=== PATIENT | female | born 1940 | race African-American/Black ===

== ENCOUNTER → 2018-03-20 | Day surgery (SDC) | payer MEDICARE ==
[2018-03-18 13:04] LABS: INR 1.09; PROTHROMBIN TIME 13.3 seconds (11.9-14.5)
[2018-03-18 13:05] LABS: PARTIAL THROMBOPLASTIN TIME 25.9 seconds (23.8-35.5)
[2018-03-18 13:12] LABS: BASOPHILS % 1.1 % (0.0-1.0); EOSINOPHILS % 0.5 % (0.0-6.0); HEMATOCRIT 36.8 % (34.2-44.1); HEMOGLOBIN 12.3 g/dL (12.0-16.0); LYMPHOCYTES # (AUTO) 1.6 (1.0-3.2); LYMPHOCYTES % 41.8 % (18.0-39.1); MEAN CORPUSCULAR HEMOGLOBIN 30.6 pg (28-32); MEAN CORPUSCULAR HGB CONC 33.4 g/dL (31-35); MEAN CORPUSCULAR VOLUME 91.5 fL (81-99); MONOCYTES # (AUTO) 0.3 (0.2-0.8); NEUTROPHILS # (AUTO) 1.8 (2.1-6.9); NEUTROPHILS % 48.6 % (38.7-80.0); PLATELET COUNT 211 x10e3/uL (140-360); RED BLOOD COUNT 4.02 x10e6/uL (3.6-5.1); RED CELL DISTRIBUTION WIDTH 12.2 % (11.7-14.4)
[2018-03-18 13:12] LABS: ALANINE AMINOTRANSFERASE 11 IU/L (0-55); ALBUMIN 3.8 g/dL (3.5-5.0); ALBUMIN/GLOBULIN RATIO 1.2 (0.8-2.0); ALKALINE PHOSPHATASE 56 IU/L (40-150); ANION GAP 12.8 mmol/L (8-16); BLOOD UREA NITROGEN 9 mg/dL (7-26); BUN/CREATININE RATIO 10 (6-25); CALCIUM 9.7 mg/dL (8.4-10.2); CARBON DIOXIDE 30 mmol/L (22-29); CHLORIDE 104 mmol/L (98-107); CREATININE, SERUM 0.86 mg/dL (0.57-1.11); EST GLOMERULAR FILTRATION RATE > 60 ML/MIN (60-); GLUCOSE 93 mg/dL (74-118); POTASSIUM 3.8 mmol/L (3.5-5.1); SODIUM 143 mmol/L (136-145)
--- NOTE | 2018-03-18 13:51 | Diagnostic Imaging Report ---
PROCEDURE: Frontal and lateral views of the chest. COMPARISON: None. INDICATIONS: PREOPERATIVE CHEST XRAY FOR BLADDER SURGERY FINDINGS: Lines/tubes: None. Lungs: Mild biapical scarring. The lungs are well inflated. There is no evidence of pneumonia or pulmonary edema. Pleura: There is no pleural effusion or pneumothorax. Heart and mediastinum: Aortic arch calcifications. The heart and the mediastinum are otherwise normal. Bones: No acute bony abnormality. IMPRESSION: No acute cardiopulmonary disease. Dictated by: Yuniel Ludwig M.D. on 03/18/2018 at 13:55 Electronically approved by: Yuniel Ludwig M.D. on 03/18/2018 at 13:55
[~2018-03-20] MED LIST: ALEVE220 M1; ASPER-FLEX85 GM; ASPERCREME177.4 ML; BOTULINUM TOXIN TYPE A 100 UNIT VIAL IM ONE; CEFOXITIN SOD 1 GM VIAL ONE; COPAXONE20 MG/KIT INJ; DEXAMETHASONE SOD PHOS INJ 4 MG/ML VIAL ONE; DOXYCYCLINE HY100 MG PO; EPHEDRINE SULFATE INJ 50 MG/10 ML SYR ONE; FENTANYL CITRATE/PF 100MCG/2 ML INJ ONE; HYDROCHLOROTHIA25 MG PO; LIDOCAINE HCL 2% LOCAL INJ 5 ML SDV VIAL INJ ONE; LOVASTATIN10 MG; MACROBID 100 M100 MG PO; MIDAZOLAM HCL 2 MG/2 ML VIAL ONE; MYRBETRIQ25 MG PO; NEOSPORIN MOIS170 GM; ONDANSETRON HCL INJ 2 MG/ML VIAL ONE; OXYBUTYNIN CHLOR5 MG PO; PROPOFOL IV EMULSION 10 MG/ML 20 ML VIAL ONE; SEVOFLURANE INHAL SOLN 250 ML PEN BTL ONE; SYSTANE BALANCE10 ML; TYLENOL EXTRA500 MG; VESICARE10 MG PO; [UNRECOGNIZED DRUG - OTHER] INJ ONE
--- NOTE | 2018-03-20 10:15 | Operative Report ---
DATE OF PROCEDURE: March 20, 2018 PREOPERATIVE DIAGNOSES 1. Urinary urgency incontinence. 2. Multiple sclerosis. POSTOPERATIVE DIAGNOSES 1. Urinary urgency incontinence. 2. Multiple sclerosis. OPERATIONS PERFORMED 1. Cystoscopy. 2. Injection of intravesical Botox, 100 units. ANESTHESIA: General. INDICATIONS: This patient is a 78-year-old black female with a long history of multiple sclerosis and urinary urgency incontinence. She has failed on anticholinergics and Myrbetriq. The plan at this time is to proceed with an additional trial of Botox 100 units. For further details, please refer to the history and physical. The procedure was done in the following fashion. DESCRIPTION OF PROCEDURE: The patient was taken to the operating room and placed under general anesthesia, and just draped with Hibiclens in the lithotomy position in the usual fashion. The 22-Tamazight Olympus cystoscope was inserted with the 30-degree oblique lens, and video camera attachment. Now, prior to beginning the procedure, I had diluted 100 units of intravesical Botox into 30 mL of bacteriostatic saline. Upon entering the bladder, I could see clear efflux of both ureteral orifices. There was squamous metaplasia of the trigone. No bladder tumors were identified. Thirty injections of Botox from intravesical Botox were made, each injection being about 1 mL. These were scattered to avoid injury to the trigone or to the ureteral orifices, and were placed along the left lateral wall, the right lateral wall, and the floor of the bladder. After 30 injections were made, the bladder was emptied and cystoscope withdrawn. The patient tolerated the procedure well, and left the operating room in good condition. My plan at this time is for the patient to continue her preoperative medications. She is being sent home on Macrobid 100 mg p.o. twice daily. She will have a return appointment to see me again in 2 weeks. Job#: [id number] VERENA
--- OUTSIDE RECORDS SUMMARY | 2018-07-01 14:03 | XMS REPORT ---
Author Author [facility] Address Unknown Phone Unavailable Care Team Providers Care Bag Presser Name Role Phone RIN BISHOP Unavailable Unavailable Problems This patient has no known problems. Allergies, Adverse Reactions, Alerts This patient has no known allergies or adverse reactions. Medications This patient has no known medications. Results Test Description Test Time Test Comments Text Results Atomic Results Result Comments CHEST 2 VIEWS 2018-06-25 14:01:00 [facility] [address] [address] Patient Name: ELLEN KITCHEN MR #: [id number] : 1940 Age/Sex: 78/F Req #: [id number] Adm Physician: Ordered by: RIN BISHOP MD Report #: [id number] Location: OR Room/Bed: Procedure: [id number] DX/CHEST 2 VIEWS Exam Date: 06/25/18 Exam Time: 1325 REPORT STATUS: Signed EXAMINATION: CHEST 2 VIEWS INDICATION: Urge incontinence. Preop. COMPARISON: None FINDINGS: TUBES and LINES: None. LUNGS: Lungs are well inflated. Lungs are clear. There is no evidence of pneumonia or pulmonary edema. PLEURA: No pleural effusion or pneumothorax. HEART AND MEDIASTINUM: The cardiomediastinal silhouette is unremarkable. BONES AND SOFT TISSUES: No acute osseous lesion. Soft tissues are unremarkable. Chronic appearing compression deformity of one of the lower thoracic vertebral bodies. UPPER ABDOMEN: No free air under the diaphragm. IMPRESSION: No acute thoracic abnormality. Signed by: Dr. Lincoln Dinh M.D. on 06/25/2018 2:02 PM Dictated By: LINCOLN DINH MD, MD 140 Transcribed By: TAVARES on 06/25/18 140 COPY TO: RIN BISHOP MD CHEST 2 VIEWS 2018-03-18 13:55:[address] [address] Patient Name: ELLEN KITCHEN MR #: [id number] : 1940 Age/Sex: 78/F Req #: [id number] Adm Physician: Ordered by: RIN BISHOP MD Report #: [id number] Location: OR Room/Bed: Procedure: [id number] DX/CHEST 2 VIEWS Exam Date: 03/18/18 Exam Time: 1300 REPORT STATUS: Signed PROCEDURE: Frontal and lateral views of the chest. COMPARISON: None. INDICATIONS: PREOPERATIVE CHEST XRAY FOR BLADDER SURGERY FINDINGS: Lines/tubes: None. Lungs: Mild biapical scarring. The lungs are well inflated. There is no evidence of pneumonia or pulmonary edema. Pleura: There is no pleural effusion or pneumothorax. Heart and mediastinum: Aortic arch calcifications. The heart and the mediastinum are otherwise normal. Bones: No acute bony abnormality. IMPRESSION: No acute cardiopulmonary disease. Dictated by: Yuniel Alicia M.D. on 2017 at 13:55 Electronically approved by: Yuniel Alicia M.D. on 2017 at 13:55 Dictated By: YUNIEL ALICAI MD [id number] Transcribed By: HIRO on 03/18/18 5528 COPY TO: RIN BISHOP MD
== END | disposition home or self-care (01) ==
LOC: OR 06:54
PROVIDERS: ATTEND Urology
DX: N39.41 Urge incontinence (principal); N30.21 Other chronic cystitis with hematuria; N31.0 Uninhibited neuropathic bladder, not elsewhere classified; N21.0 Calculus in bladder; G35 Multiple sclerosis; I10 Essential (primary) hypertension; K64.4 Residual hemorrhoidal skin tags; E78.00 Pure hypercholesterolemia, unspecified; I49.3 Ventricular premature depolarization; Z01.810 Encounter for preprocedural cardiovascular examination; Z01.812 Encounter for preprocedural laboratory examination; Z01.818 Encounter for other preprocedural examination
CPT/HCPCS: 36415; 52287; 71046; 80053; 85025; 85610; 85730; 93005; J0587; J0694; J1100; J2001; J2250; J2405

== ENCOUNTER → 2018-06-26 | Day surgery (SDC) | payer MEDICARE ==
[2018-06-25 14:05] LABS: BASOPHILS % 0.5 % (0.0-1.0); EOSINOPHILS # (AUTO) 0.1 (0.0-0.4); EOSINOPHILS % 1.8 % (0.0-6.0); HEMATOCRIT 41.5 % (34.2-44.1); HEMOGLOBIN 13.2 g/dL (12.0-16.0); MEAN CORPUSCULAR HEMOGLOBIN 30.5 pg (28-32); MEAN CORPUSCULAR HGB CONC 31.8 g/dL (31-35); MEAN CORPUSCULAR VOLUME 95.8 fL (81-99); MONOCYTES # (AUTO) 0.3 (0.2-0.8); MONOCYTES % 7.3 % (4.4-11.3); NEUTROPHILS # (AUTO) 1.6 (2.1-6.9); NEUTROPHILS % 40.4 % (38.7-80.0); PLATELET COUNT 191 x10e3/uL (140-360); RED BLOOD COUNT 4.33 x10e6/uL (3.6-5.1); RED CELL DISTRIBUTION WIDTH 12.1 % (11.7-14.4)
--- NOTE | 2018-06-25 14:05 | Diagnostic Imaging Report ---
EXAMINATION: CHEST 2 VIEWS INDICATION: Urge incontinence. Preop. COMPARISON: None FINDINGS: TUBES and LINES: None. LUNGS: Lungs are well inflated. Lungs are clear. There is no evidence of pneumonia or pulmonary edema. PLEURA: No pleural effusion or pneumothorax. HEART AND MEDIASTINUM: The cardiomediastinal silhouette is unremarkable. BONES AND SOFT TISSUES: No acute osseous lesion. Soft tissues are unremarkable. Chronic appearing compression deformity of one of the lower thoracic vertebral bodies. UPPER ABDOMEN: No free air under the diaphragm. IMPRESSION: No acute thoracic abnormality. Signed by: Dr. Lincoln Dinh M.D. on 06/25/2018 2:02 PM
[2018-06-25 14:12] LABS: INR 0.9; PARTIAL THROMBOPLASTIN TIME 22.7 seconds (23.8-35.5)
[2018-06-25 14:19] LABS: ALANINE AMINOTRANSFERASE 15 IU/L (0-55); ALBUMIN/GLOBULIN RATIO 1.2 (0.8-2.0); ALKALINE PHOSPHATASE 70 IU/L (40-150); ANION GAP 15.9 mmol/L (8-16); BLOOD UREA NITROGEN 18 mg/dL (7-26); BUN/CREATININE RATIO 22 (6-25); CARBON DIOXIDE 24 mmol/L (22-29); CHLORIDE 109 mmol/L (98-107); CREATININE, SERUM 0.81 mg/dL (0.57-1.11); EST GLOMERULAR FILTRATION RATE > 60 ML/MIN (60-); GLUCOSE 81 mg/dL (74-118); POTASSIUM 3.9 mmol/L (3.5-5.1); SODIUM 145 mmol/L (136-145)
[~2018-06-26] MED LIST changes: -LIDOCAINE HCL 2% LOCAL INJ 5 ML SDV VIAL INJ ONE; -[UNRECOGNIZED DRUG - OTHER] INJ ONE
--- NOTE | 2018-06-26 12:13 | Operative Report ---
DATE OF PROCEDURE: June 26, 2018 PREOPERATIVE DIAGNOSES 1. Urinary urgency and incontinence. 2. Multiple sclerosis. POSTOPERATIVE DIAGNOSES 1. Urinary urgency and incontinence. 2. Multiple sclerosis. OPERATION PERFORMED: Cystoscopy with injection of intravesical Botox 200 units. ANESTHESIA: General. INDICATIONS: This patient is a 78-year-old black female with multiple sclerosis. She has failed on oral medications for controlling her urinary incontinence. She was given a trial several months ago of Botox 100 units. She states that this improved her a great deal but not enough that she is still having episodes of wetting her pants. Therefore, she is going to have an injection today of intravesical Botox at 200 units. For further details, please refer to the history and physical. The procedure was done in the following fashion: DESCRIPTION OF PROCEDURE: The patient was taken to the operating room and placed under general anesthesia and dressed and draped with Hibiclens in lithotomy position in the usual fashion. Prior to beginning the procedure, I diluted 200 units of Botox into 30 mL of bacteriostatic sterile saline. I then used a Coloplast injection needle to do the injections. Cystourethroscopy was performed with a 30-degree oblique lens and a 22-Mongolian Olympus rigid cystoscope. There was a great deal of squamous metaplasia around the trigone. The ureteral orifices were identified, and clear efflux was seen from both ureteral orifices. That was also evidence of cystitis cystica and moderate bladder trabeculation. Thirty injections into the bladder were made using the Coloplast needle, each injection carrying 1 mL of Botox. I did not inject the region of the trigone, and I tried to get a nice scattering across the lateral martinez of the bladder and the floor of the bladder. Once the 30 injections were completed, the bladder was emptied and the cystoscope withdrawn. Patient tolerated the procedure well and left the operating room in good condition. My plan at this time is for the patient to resume her preoperative medications. She will go home on Macrobid 100 mg p.o. twice daily, number 20. She will have a return appointment to see me again in 2 weeks. Job#: [id number]
[2018-06-26 12:40] VITALS: BP 118/82
== END | disposition home or self-care (01) ==
LOC: OR 08:55
PROVIDERS: ATTEND Urology
DX: N39.41 Urge incontinence (principal); N31.0 Uninhibited neuropathic bladder, not elsewhere classified; G35 Multiple sclerosis; N30.20 Other chronic cystitis without hematuria; I10 Essential (primary) hypertension; E78.00 Pure hypercholesterolemia, unspecified; K64.4 Residual hemorrhoidal skin tags; Z01.810 Encounter for preprocedural cardiovascular examination; Z01.812 Encounter for preprocedural laboratory examination; Z01.811 Encounter for preprocedural respiratory examination
CPT/HCPCS: 36415; 52287; 71046; 80053; 85025; 85610; 85730; 93005; J0587; J0694; J1100; J2250; J2405

== ENCOUNTER → 2018-09-25 | Day surgery (SDC) | payer MEDICARE ==
[2018-09-23 14:49] LABS: BASOPHILS % 0.5 % (0.0-1.0); EOSINOPHILS # (AUTO) 0.1 (0.0-0.4); EOSINOPHILS % 1.6 % (0.0-6.0); HEMATOCRIT 39.3 % (34.2-44.1); LYMPHOCYTES # (AUTO) 1.4 (1.0-3.2); LYMPHOCYTES % 37.6 % (18.0-39.1); MEAN CORPUSCULAR HEMOGLOBIN 30.7 pg (28-32); MEAN CORPUSCULAR HGB CONC 33.1 g/dL (31-35); MEAN CORPUSCULAR VOLUME 92.9 fL (81-99); MONOCYTES # (AUTO) 0.2 (0.2-0.8); MONOCYTES % 6.6 % (4.4-11.3); NEUTROPHILS # (AUTO) 1.9 (2.1-6.9); NEUTROPHILS % 53.4 % (38.7-80.0); PLATELET COUNT 220 x10e3/uL (140-360); RED BLOOD COUNT 4.23 x10e6/uL (3.6-5.1); RED CELL DISTRIBUTION WIDTH 12.1 % (11.7-14.4)
[2018-09-23 15:05] LABS: INR 1.02; PROTHROMBIN TIME 14.3 seconds (11.9-14.5)
[2018-09-23 15:06] LABS: PARTIAL THROMBOPLASTIN TIME 31.3 seconds (23.8-35.5)
[2018-09-23 15:15] LABS: ALANINE AMINOTRANSFERASE 10 IU/L (0-55); ALBUMIN 3.7 g/dL (3.5-5.0); ALBUMIN/GLOBULIN RATIO 1.1 (0.8-2.0); ALKALINE PHOSPHATASE 63 IU/L (40-150); BLOOD UREA NITROGEN 8 mg/dL (7-26); BUN/CREATININE RATIO 9 (6-25); CALCIUM 9.6 mg/dL (8.4-10.2); CARBON DIOXIDE 28 mmol/L (22-29); CHLORIDE 102 mmol/L (98-107); CREATININE, SERUM 0.85 mg/dL (0.57-1.11); EST GLOMERULAR FILTRATION RATE > 60 ML/MIN (60-); GLUCOSE 90 mg/dL (74-118); SODIUM 139 mmol/L (136-145)
--- NOTE | 2018-09-23 16:59 | Diagnostic Imaging Report ---
PROCEDURE: X-RAY CHEST, TWO VIEWS COMPARISON: [facility], DX, CHEST 2 VIEWS, 06/25/2018, 13:25. INDICATIONS: INCONTINENCE FINDINGS: LUNGS: The lungs are hyperexpanded. Stable appearing opacities in the right apex. Right midlung zone calcified granuloma. PLEURA: No effusions or pneumothorax. HEART & MEDIASTINUM: The heart is within normal size-limits. BONES & SOFT TISSUES: No acute findings. CONCLUSION: No acute thoracic abnormality. Isidro Rutherford D.O. Dictated by: Isidro Rutherford D.O. on 09/23/2018 at 17:10 Electronically approved by: Isidro Rutherford D.O. on 09/23/2018 at 17:10
[~2018-09-25] MED LIST changes: +ASPIR 8181 MG PO; +ASPIRIN 81 MG CHEW TAB PO SCH; +CALCIUM 500 +1 EAC2 PO; +HYDROCHLOROTHIAZIDE 25 MG TAB PO SCH; +LIDOCAINE HCL 2% LOCAL INJ 5 ML SDV VIAL INJ ONE; -MIDAZOLAM HCL 2 MG/2 ML VIAL ONE; +NITROFURANTOIN MACROCRYSTALS 100 MG CAP PO SCH; +SOLIFENACIN SUCCINATE 5 MG TAB PO SCH; +VESICARE5 MG PO; +[UNRECOGNIZED DRUG - OTHER] INJ
[2018-09-25 13:15] VITALS: BP 130/62
--- NOTE | 2018-09-25 14:16 | Operative Report ---
DATE OF PROCEDURE: September 25, 2018 PREOPERATIVE DIAGNOSES 1. Urinary urgency incontinence. 2. Neurogenic bladder. 3. Multiple sclerosis. POSTOPERATIVE DIAGNOSES 1. Urinary urgency incontinence. 2. Neurogenic bladder. 3. Multiple sclerosis. OPERATION PERFORMED: Cystoscopy with injection of intravesical Botox, 300 units. ANESTHESIA: General. INDICATIONS: This patient is a 78-year-old black female with a long history of multiple sclerosis, neurogenic bladder dysfunction and urinary urgency incontinence. She has failed on oral anticholinergic medicines. She has failed on Myrbetriq. She was given a trial of Botox 100 units and had a partial response. She was then tried on Botox 200 units and had a slightly better response, but not good enough. The patient now returns for a trial of intravesical Botox 300 units. For further details, please refer to the history and physical. The procedure was done in the following fashion. DESCRIPTION OF PROCEDURE: The patient was taken to the operating room and placed under general anesthesia, and just draped with Hibiclens in the lithotomy position in the usual fashion. There was a great deal of squamous metaplasia present. There was particulate matter floating in the bladder, which was irrigated out with multiple fillings of the bladder with the cystoscope and then draining the particulate matter and squamous metaplasia out. It also may be that the patient had developed a urinary tract infection since her last appointment to my office. The patient had been given Mefoxin 1 g IV on-call to the operating room. The ureteral orifices were difficult to visualize due to the squamous metaplasia. The bladder was trabeculated. Once the squamous metaplasia particles were irrigated out, the bladder mucosa did not appear all the inflamed, but there was moderate to severe trabeculation present. Three hundred units of Botox were diluted into 30 mL of bacteriostatic sterile saline. I used a Coloplast needle for the injections. Injections were made taking care to avoid the region of the trigone. I injected the bladder 30 times each time with 1 mL of intravesical Botox through the Coloplast needle to get a good scattering across the bladder. Once this was accomplished, the bladder was emptied and the cystoscope withdrawn. The patient tolerated the procedure well, and left the operating room in good condition. Plan at this time is for the patient to go home on Macrobid 100 mg p.o. twice daily, #20. She will have a return appointment to see me again in 2 weeks. Job#: [id number] RI
== END | disposition home or self-care (01) ==
LOC: OR 08:10
PROVIDERS: ATTEND Urology
DX: N39.41 Urge incontinence (principal); N31.0 Uninhibited neuropathic bladder, not elsewhere classified; G35 Multiple sclerosis; N32.89 Other specified disorders of bladder; N30.21 Other chronic cystitis with hematuria; I10 Essential (primary) hypertension; E78.00 Pure hypercholesterolemia, unspecified; K64.4 Residual hemorrhoidal skin tags; Z01.810 Encounter for preprocedural cardiovascular examination; Z01.812 Encounter for preprocedural laboratory examination; Z01.818 Encounter for other preprocedural examination; Z79.82 Long term (current) use of aspirin
CPT/HCPCS: 36415; 71046; 80053; 85025; 85610; 85730; 93005; J0587; J0694; J1100; J2001; J2405

== ENCOUNTER → 2019-01-08 | Day surgery (SDC) | payer MEDICARE ==
[2018-12-10 12:34] LABS: BASOPHILS % 0.5 % (0.0-1.0); EOSINOPHILS # (AUTO) 0.2 (0.0-0.4); EOSINOPHILS % 3.7 % (0.0-6.0); HEMATOCRIT 37.7 % (34.2-44.1); HEMOGLOBIN 12.4 g/dL (12.0-16.0); LYMPHOCYTES # (AUTO) 1.3 (1.0-3.2); LYMPHOCYTES % 31.3 % (18.0-39.1); MEAN CORPUSCULAR HEMOGLOBIN 30.8 pg (28-32); MEAN CORPUSCULAR HGB CONC 32.9 g/dL (31-35); MEAN CORPUSCULAR VOLUME 93.8 fL (81-99); MONOCYTES # (AUTO) 0.3 (0.2-0.8); MONOCYTES % 6.5 % (4.4-11.3); NEUTROPHILS # (AUTO) 2.3 (2.1-6.9); NEUTROPHILS % 57.8 % (38.7-80.0); PLATELET COUNT 206 x10e3/uL (140-360); RED BLOOD COUNT 4.02 x10e6/uL (3.6-5.1); RED CELL DISTRIBUTION WIDTH 11.9 % (11.7-14.4)
[2018-12-10 12:45] LABS: INR 0.91; PROTHROMBIN TIME 12.7 seconds (11.9-14.5)
[2018-12-10 12:46] LABS: PARTIAL THROMBOPLASTIN TIME 28.2 seconds (23.8-35.5)
[2018-12-10 12:56] LABS: ALANINE AMINOTRANSFERASE 8 IU/L (0-55); ALBUMIN 3.3 g/dL (3.5-5.0); ALBUMIN/GLOBULIN RATIO 1.1 (0.8-2.0); ALKALINE PHOSPHATASE 70 IU/L (40-150); BLOOD UREA NITROGEN 9 mg/dL (7-26); BUN/CREATININE RATIO 12 (6-25); CALCIUM 8.9 mg/dL (8.4-10.2); CARBON DIOXIDE 28 mmol/L (22-29); CHLORIDE 104 mmol/L (98-107); CREATININE, SERUM 0.78 mg/dL (0.57-1.11); EST GLOMERULAR FILTRATION RATE > 60 ML/MIN (60-); GLUCOSE 91 mg/dL (74-118); SODIUM 138 mmol/L (136-145)
[~2019-01-08] MED LIST changes: -ASPIRIN 81 MG CHEW TAB PO SCH; +CEFOXITIN 1GM/ D5W 50ML 50 ML IV NR; -CEFOXITIN SOD 1 GM VIAL ONE; -DEXAMETHASONE SOD PHOS INJ 4 MG/ML VIAL ONE; -EPHEDRINE SULFATE INJ 50 MG/10 ML SYR ONE; -HYDROCHLOROTHIAZIDE 25 MG TAB PO SCH; +LACTATED RINGER'S 500 ML IV ONE; -LIDOCAINE HCL 2% LOCAL INJ 5 ML SDV VIAL INJ ONE; +LOVASTATIN10 MG PO; -NITROFURANTOIN MACROCRYSTALS 100 MG CAP PO SCH; -ONDANSETRON HCL INJ 2 MG/ML VIAL ONE; -PROPOFOL IV EMULSION 10 MG/ML 20 ML VIAL ONE; -SEVOFLURANE INHAL SOLN 250 ML PEN BTL ONE; -SOLIFENACIN SUCCINATE 5 MG TAB PO SCH; +VITAMIN D1000 UNI1 PO
[2019-01-08 13:30] VITALS: BP 119/78
--- NOTE | 2019-01-08 18:03 | Operative Report ---
DATE OF PROCEDURE: 01/08/2019 SURGEON: Ney Godoy MD PREOPERATIVE DIAGNOSES: Urinary urgency incontinence, uninhibited neurogenic bladder, and multiple sclerosis. POSTOPERATIVE DIAGNOSIS: Urinary urgency incontinence, uninhibited neurogenic bladder, and multiple sclerosis. OPERATION PERFORMED: Cystoscopy with an injection of intravesical Botox 400 units. ANESTHESIA: General. INDICATIONS: This patient is a 78-year-old black female with a long history of multiple sclerosis and urinary urgency incontinence and neurogenic bladder dysfunction. She has failed on anticholinergic medications and on Myrbetriq and a combination thereof. The patient has had responses to Botox at 100 units, Botox at 200 units, and Botox at 300 units, but 300 units of Botox wore off after about a month and a half to two months. She is now here for a trial of Botox at 400 units. For further details, please refer to the history and physical. The procedure was done in the following fashion. PROCEDURE IN DETAIL: The patient was taken to the operating room, placed under general anesthesia, and dressed and draped with Hibiclens in lithotomy position in the usual fashion. The 22-Syrian Olympus cystoscope was inserted with video camera attachment. There was severe squamous metaplasia of the trigone. She has a history and presence of cystitis cystica. The bladder was severely trabeculated with some cellule and diverticula formation. There was severe squamous metaplasia of the trigone and there was particulate matter in the bladder. I thought that this may have been shedded squamous cells. The bladder was irrigated several times using an Ellik evacuator and the particulate matter sent to Pathology for further evaluation. My next step, prior to placing her for cystoscopy, I had diluted 400 units of Botox into 30 mL of bacteriostatic sterile saline. I then used a Chemayi Coloplast needle through the cystoscope and made 30 injections into the bladder. Each injection was of 1 mL of Botox and this was done taking care to avoid injecting the trigone. After the 30 injections were well scattered across the bladder, I then reinspected the bladder and then emptied the bladder and removed the cystoscope. The patient tolerated the procedure well and left the operating room in good condition. She is going to be sent home on Macrobid 100 mg p.o. twice daily, #20. She will have return appointment to see me again in two weeks. Ney Godoy MD SRA/YUDELKA /[id number]
== END | disposition home or self-care (01) ==
LOC: OR 10:27
PROVIDERS: ATTEND Urology
DX: N31.0 Uninhibited neuropathic bladder, not elsewhere classified (principal); N39.41 Urge incontinence; G35 Multiple sclerosis; N32.89 Other specified disorders of bladder; N30.80 Other cystitis without hematuria; K64.4 Residual hemorrhoidal skin tags; I10 Essential (primary) hypertension; E78.00 Pure hypercholesterolemia, unspecified; Z01.810 Encounter for preprocedural cardiovascular examination; Z01.812 Encounter for preprocedural laboratory examination; Z79.82 Long term (current) use of aspirin
CPT/HCPCS: 36415; 52287; 80053; 85025; 85610; 85730; 88304; 93005; J0587; 88305

== ENCOUNTER → 2019-04-09 | Day surgery (SDC) | payer MEDICARE ==
[2019-04-07 12:45] LABS: BASOPHILS % 0.8 % (0.0-1.0); EOSINOPHILS # (AUTO) 0.1 (0.0-0.4); EOSINOPHILS % 1.4 % (0.0-6.0); HEMATOCRIT 36.9 % (34.2-44.1); HEMOGLOBIN 11.8 g/dL (12.0-16.0); LYMPHOCYTES # (AUTO) 1.5 (1.0-3.2); MEAN CORPUSCULAR HEMOGLOBIN 30.4 pg (28-32); MEAN CORPUSCULAR VOLUME 95.1 fL (81-99); MONOCYTES # (AUTO) 0.3 (0.2-0.8); MONOCYTES % 7.3 % (4.4-11.3); NEUTROPHILS # (AUTO) 1.7 (2.1-6.9); NEUTROPHILS % 48.2 % (38.7-80.0); PLATELET COUNT 193 x10e3/uL (140-360); RED BLOOD COUNT 3.88 x10e6/uL (3.6-5.1); RED CELL DISTRIBUTION WIDTH 12.3 % (11.7-14.4)
[2019-04-07 13:07] LABS: INR 0.92; PROTHROMBIN TIME 12.9 seconds (11.9-14.5)
[2019-04-07 13:08] LABS: ALANINE AMINOTRANSFERASE 6 IU/L (0-55); ALBUMIN 3.6 g/dL (3.5-5.0); ALBUMIN/GLOBULIN RATIO 1.1 (0.8-2.0); ALKALINE PHOSPHATASE 72 IU/L (40-150); ANION GAP 10.8 mmol/L (8-16); BLOOD UREA NITROGEN 9 mg/dL (7-26); BUN/CREATININE RATIO 11 (6-25); CALCIUM 9.9 mg/dL (8.4-10.2); CARBON DIOXIDE 28 mmol/L (22-29); CHLORIDE 106 mmol/L (98-107); CREATININE, SERUM 0.82 mg/dL (0.57-1.11); EST GLOMERULAR FILTRATION RATE > 60 ML/MIN (60-); GLUCOSE 83 mg/dL (74-118); POTASSIUM 3.8 mmol/L (3.5-5.1); SODIUM 141 mmol/L (136-145)
[2019-04-07 13:08] LABS: PARTIAL THROMBOPLASTIN TIME 29.5 seconds (23.8-35.5)
--- NOTE | 2019-04-07 13:08 | Diagnostic Imaging Report ---
EXAMINATION: CHEST 2 VIEWS INDICATION: Pre-operative orders. COMPARISON: Chest radiograph 09/23/2018. FINDINGS: TUBES and LINES: None. LUNGS: Lungs are mildly hyperinflated. There is no evidence of pneumonia or pulmonary edema. PLEURA: No pleural effusion or pneumothorax. HEART AND MEDIASTINUM: The cardiomediastinal silhouette is unremarkable. BONES AND SOFT TISSUES: Chronic appearing compression deformities in the lower thoracic spine are again noted. Old healed left lower rib fractures. UPPER ABDOMEN: No free air under the diaphragm. IMPRESSION: No acute radiographic abnormality. Signed by: Dr. Kita Eaton MD on 04/07/2019 1:05 PM
[~2019-04-09] MED LIST changes: +ALENDRONATE SOD35 MG PO; -CEFOXITIN 1GM/ D5W 50ML 50 ML IV NR; +CEFOXITIN 1GM/ D5W 50ML 50 ML IV ONE; +DEXAMETHASONE SOD PHOS INJ 4 MG/ML VIAL ONE; -FENTANYL CITRATE/PF 100MCG/2 ML INJ ONE; -LACTATED RINGER'S 500 ML IV ONE; +LIDOCAINE HCL 2% LOCAL INJ 5 ML SDV VIAL INJ ONE; +PROPOFOL IV EMULSION 10 MG/ML 20 ML VIAL ONE; +SEVOFLURANE INHAL SOLN 250 ML PEN BTL ONE; +SODIUM CHLORIDE 0.9% INJ 10 ML VIAL ONE
[2019-04-09 12:04] VITALS: BP 131/56
--- NOTE | 2019-04-09 12:13 | Operative Report ---
DATE OF PROCEDURE: 04/09/2019 SURGEON: Ney Godoy MD PREOPERATIVE DIAGNOSES: Uninhibited neurogenic bladder, urinary urgency incontinence, and multiple sclerosis. POSTOPERATIVE DIAGNOSES: Uninhibited neurogenic bladder, urinary urgency incontinence, and multiple sclerosis. OPERATION PERFORMED: Cystoscopy with an injection of intravesical Botox 400 units. ANESTHESIA: General. INDICATIONS: This patient is a 79-year-old black female with a long history of multiple sclerosis. She has had neurogenic bladder dysfunction and failed to respond with oral anticholinergic agents or Myrbetriq or a combination thereof. The patient has responded to a dosage of Botox 400 units. She now returns for another injection. For further details, please refer to the history and physical. The procedure was done in following fashion. PROCEDURE IN DETAIL: The patient was taken to the operating room, placed under general anesthesia and dressed and draped with Hibiclens in lithotomy position in the usual fashion. The 22-Burmese cystoscope was inserted. There was severe squamous metaplasia of the trigone. The bladder was severely trabeculated with numerous cellules and some bladder diverticula identified as well. Prior to starting the procedure, I diluted 400 units of Botox into 30 mL of sterile preservative-free saline. I used a Coloplast needle to make 1 mL injections scattered nicely along the lateral martinez first and then the central area of the bladder. Care was taken to avoid injury to the trigone. Once the 400 units were injected, the cystoscope and needle were removed, the bladder was then reinspected and then emptied again. The patient tolerated the procedure well, left the operating room in good condition. My plan is to send her home on Macrobid 100 mg p.o. twice daily for seven days. She will have a return appointment to see me again in two weeks. Ney Godoy MD JANNY/MODL /[id number]
== END | disposition home or self-care (01) ==
LOC: OR 09:03
PROVIDERS: ATTEND Urology
DX: N31.0 Uninhibited neuropathic bladder, not elsewhere classified (principal); N39.41 Urge incontinence; N32.89 Other specified disorders of bladder; N32.3 Diverticulum of bladder; N30.20 Other chronic cystitis without hematuria; G35 Multiple sclerosis; E78.5 Hyperlipidemia, unspecified; I10 Essential (primary) hypertension; K64.4 Residual hemorrhoidal skin tags; E78.00 Pure hypercholesterolemia, unspecified; Z01.810 Encounter for preprocedural cardiovascular examination; Z01.812 Encounter for preprocedural laboratory examination; Z01.818 Encounter for other preprocedural examination; Z79.82 Long term (current) use of aspirin; Z99.3 Dependence on wheelchair
CPT/HCPCS: 36415; 52287; 71046; 80053; 85025; 85610; 85730; 93005; J0587; J1100; J2001

== ENCOUNTER → 2019-07-16 | Day surgery (SDC) | payer MEDICARE ==
[2019-07-15 15:18] LABS: BASOPHILS % 0.8 % (0.0-1.0); HEMATOCRIT 36.9 % (34.2-44.1); HEMOGLOBIN 11.7 g/dL (12.0-16.0); LYMPHOCYTES # (AUTO) 1.9 (1.0-3.2); LYMPHOCYTES % 46.6 % (18.0-39.1); MEAN CORPUSCULAR HEMOGLOBIN 30.3 pg (28-32); MEAN CORPUSCULAR HGB CONC 31.7 g/dL (31-35); MEAN CORPUSCULAR VOLUME 95.6 fL (81-99); MONOCYTES # (AUTO) 0.3 (0.2-0.8); MONOCYTES % 6.8 % (4.4-11.3); NEUTROPHILS # (AUTO) 1.8 (2.1-6.9); NEUTROPHILS % 44.5 % (38.7-80.0); PLATELET COUNT 235 x10e3/uL (140-360); RED BLOOD COUNT 3.86 x10e6/uL (3.6-5.1); RED CELL DISTRIBUTION WIDTH 12.2 % (11.7-14.4)
[2019-07-15 15:27] LABS: INR 0.92; PROTHROMBIN TIME 12.9 seconds (11.9-14.5)
[2019-07-15 15:28] LABS: PARTIAL THROMBOPLASTIN TIME 27.9 seconds (23.8-35.5)
[2019-07-15 15:35] LABS: ALANINE AMINOTRANSFERASE 8 IU/L (0-55); ALBUMIN 3.5 g/dL (3.5-5.0); ALBUMIN/GLOBULIN RATIO 1.1 (0.8-2.0); ALKALINE PHOSPHATASE 64 IU/L (40-150); ANION GAP 9.7 mmol/L (8-16); BLOOD UREA NITROGEN 8 mg/dL (7-26); BUN/CREATININE RATIO 10 (6-25); CALCIUM 9.9 mg/dL (8.4-10.2); CARBON DIOXIDE 30 mmol/L (22-29); CHLORIDE 105 mmol/L (98-107); EST GLOMERULAR FILTRATION RATE > 60 ML/MIN (60-); GLUCOSE 75 mg/dL (74-118); POTASSIUM 3.7 mmol/L (3.5-5.1); SODIUM 141 mmol/L (136-145)
--- NOTE | 2019-07-15 16:16 | Diagnostic Imaging Report ---
EXAMINATION: CHEST 2 VIEWS INDICATION: Pre-operative COMPARISON: Multiple prior chest radiograph, most recently of 04/07/2019 FINDINGS: LINES/TUBES:None LUNGS:The lungs are hyperinflated. Mild biapical pleural parenchymal thickening/scarring. No focal consolidation or pulmonary edema. PLEURA:No pleural effusion or pneumothorax. MEDIASTINUM:The cardiomediastinal silhouette appears unchanged in size and shape. BONES/SOFT TISSUES:No acute osseous injury. Healed anterolateral left rib fractures. Unchanged lower thoracic and upper lumbar compression fractures. ABDOMEN:No free air under the diaphragm. IMPRESSION: Hyperinflated lungs. No focal pneumonia or pulmonary edema. Signed by: Merissa Borrego MD on 07/15/2019 4:12 PM
[~2019-07-16] MED LIST changes: -CEFOXITIN 1GM/ D5W 50ML 50 ML IV ONE; +CEFOXITIN SOD 1 GM VIAL ONE; -DEXAMETHASONE SOD PHOS INJ 4 MG/ML VIAL ONE; -SODIUM CHLORIDE 0.9% INJ 10 ML VIAL ONE; +TYLENOL EXTRA500 MG PO
[2019-07-16 15:25] VITALS: BP 132/66
--- NOTE | 2019-07-16 21:02 | Operative Report ---
DATE OF PROCEDURE: 07/16/2019 SURGEON: Ney Godoy MD LOCATION: [facility]. PREOPERATIVE DIAGNOSES: Urinary urgency, incontinence, neurogenic bladder, and multiple sclerosis. POSTOPERATIVE DIAGNOSES: Urinary urgency, incontinence, neurogenic bladder, and multiple sclerosis. OPERATIONS PERFORMED: Cystoscopy with injection of intravesical Botox 400 units. ANESTHESIA: General. INDICATIONS: This patient is a 79-year-old black female with a long history of multiple sclerosis and urinary urgency and incontinence. She has failed on oral medications and has had an acceptable response to Botox 400 units every 3 months. The procedure was done in following fashion. DESCRIPTION OF PROCEDURE: The patient was taken to the operating room, dressed and draped with Hibiclens in lithotomy position under general anesthesia in the usual fashion. The 22-Sami Olympus cystoscope was inserted with the 30-degree oblique lens and sterile saline was used for irrigation. At this point in time, the patient had severe squamous metaplasia of the trigone and I irrigated the bladder free with an Ellik, so that I could get squamous metaplasia out of the way clearly enough so I could see the ureteral orifices and get the floaters out of the bladder, so I could see what I am doing. The bladder was severely trabeculated. No bladder tumors were identified. Now prior to doing this, I had mixed 400 units of Botox into 30 mL of bacteriostatic sterile preservative-free saline. I used a Coloplast needle to make multiple 1 mL injections. This was done to cover first the right lateral wall, then the left lateral wall, and the floor of the bladder. After 30 injections, the procedure was completed. Care was taken to avoid injury or injection to the trigone. After 30 injections, the bladder was emptied and cystoscope withdrawn. The patient tolerated the procedure well and left the operating room in good condition. My plan at this time is to send home on Macrobid 100 mg p.o. twice daily for 10 days. She will have return appointment to see me again in 2 weeks. Ney Godoy MD JANNY/MODL /[id number]
== END | disposition home or self-care (01) ==
LOC: OR 12:30
PROVIDERS: ATTEND Urology
DX: N39.41 Urge incontinence (principal); N31.0 Uninhibited neuropathic bladder, not elsewhere classified; N32.89 Other specified disorders of bladder; N30.20 Other chronic cystitis without hematuria; G35 Multiple sclerosis; I10 Essential (primary) hypertension; K64.4 Residual hemorrhoidal skin tags; E78.00 Pure hypercholesterolemia, unspecified; Z01.810 Encounter for preprocedural cardiovascular examination; Z01.812 Encounter for preprocedural laboratory examination; Z01.818 Encounter for other preprocedural examination; Z79.82 Long term (current) use of aspirin
CPT/HCPCS: 36415; 52287; 71046; 80053; 85025; 85610; 85730; 93005; J0587; J0694; J2001; J2704